=== PATIENT | male | born 1950 | race Caucasian/White ===

== ENCOUNTER 2017-09-13 14:55 | Inpatient (IN) | payer MEDICARE, OTHER ==
[2017-09-13] MEDS ORDERED: POLYMYXIN B 500000 UNIT INJ (18:35)
[2017-09-13] MEDS ORDERED: VANCOMYCIN 1 GM INJ (18:36)
[2017-09-13] MEDS ORDERED: TOBRAMYCIN 1.2 GM POWDER (18:36)
[2017-09-13 18:44] LABS: ADD MAN DIFF? NO
[2017-09-13 18:48] LABS: WHITE BLOOD COUNT 8.6 10^3/ul (4.8-10.8)
[2017-09-13 18:48] LABS: BASOPHIL # 0.1 10^3/ul (0.0-0.1); BASOPHILS % 1.2 % (0.0-2.0); EOSINOPHILS # 0.5 10^3/ul (0.0-0.5); EOSINOPHILS % 5.8 % (0.0-7.0); HEMATOCRIT 47.4 % (42.0-52.0); HEMOGLOBIN 15.2 g/dl (14.0-18.0); LYMPHOCYTES # 1.3 10^3/ul (0.8-2.9); MEAN CORPUSCULAR HEMOGLOBIN 31.6 pg (29.0-33.0); MEAN CORPUSCULAR HGB CONC 32.1 g/dl (32.0-37.0); MEAN CORPUSCULAR VOLUME 98.5 fl (82.0-101.0); MEAN PLATELET VOLUME 9.6 fl (7.4-10.4); MONOCYTE # 0.8 10^3/ul (0.3-0.9); NEUTROPHIL # 5.8 10^3/ul (1.6-7.5); NEUTROPHILS % 68.2 % (39.0-77.0); PLATELET COUNT 224 10^3/UL (140-415); RED BLOOD COUNT 4.81 10^6/ul (4.70-6.10); RED CELL DISTRIBUTION WIDTH 16.8 % (11.5-14.5)
[2017-09-13] MEDS ORDERED: FENTAnyl 50 MCG/ML VIAL (18:48)
[2017-09-13] MEDS ORDERED: PROPOFOL 20 ML (18:49)
[2017-09-13] MEDS ORDERED: MIDAZOLAM 1 MG/ML 2 ML INJ (18:49)
[2017-09-13] MEDS ORDERED: LIDOCAINE 2% (SDV) 5 ML INJ (18:49)
[2017-09-13] MEDS ORDERED: ONDANSETRON 4 MG INJ (18:49)
[2017-09-13] MEDS ORDERED: MEPERIDINE 25 MG INJ IV ×2 (19:00→21:00)
[2017-09-13] MEDS ORDERED: DIPHENHYDRAMINE 25 MG CAP PO (19:00)
[2017-09-13] MEDS ORDERED: DIPHENHYDRAMINE 50 MG INJ IV ×2 (19:00→21:00)
[2017-09-13] MEDS ORDERED: morphine 10 MG INJ IV (19:00)
[2017-09-13] MEDS ORDERED: hydrALAzine 20 MG INJ IV ×2 (19:00→21:00)
[2017-09-13] MEDS ORDERED: LEVALBUTEROL (NEB) 0.63 MG/3 ML AMP HHN (19:00)
[2017-09-13] MEDS ORDERED: FENTAnyl 50 MCG/ML VIAL IV ×2 (19:00→21:00)
[2017-09-13] MEDS ORDERED: IPRATROPIUM (NEB) 0.5 MG/2.5 ML AMP HHN ×2 (19:00→21:00)
[2017-09-13] MEDS ORDERED: OXYCODONE/ACETAMINOPHEN (5/325) TAB PO (19:00)
[2017-09-13] MEDS ORDERED: ONDANSETRON 4 MG INJ IV ×3 (19:00→21:00)
[2017-09-13] MEDS ORDERED: HYDROmorphONE (0.2 MG/ML) 10ML SYG IV ×4 (19:00→21:00)
[2017-09-13 19:17] LABS: ALANINE AMINOTRANSFERASE 24 IU/L (13-69); ALBUMIN 4.8 g/dl (3.3-4.9); ALKALINE PHOSPHATASE 159 IU/L (42-121); ANION GAP 19 (8-16); ASPARTATE AMINO TRANSFERASE 30 IU/L (15-46); BILIRUBIN,INDIRECT 0.9 mg/dl (0-1.1); BILIRUBIN,TOTAL 0.9 mg/dl (0.2-1.3); BLOOD UREA NITROGEN 35 mg/dl (7-20); CALCIUM 10.5 mg/dl (8.4-10.2); CARBON DIOXIDE 31 mmol/L (21-31); CHLORIDE 99 mmol/L (97-110); CREATININE 1.57 mg/dl (0.61-1.24); GLUCOSE 100 mg/dl (70-220); POTASSIUM 4.5 mmol/L (3.5-5.1); SODIUM 144 mmol/L (135-144); TOTAL PROTEIN 8.8 g/dl (6.1-8.1)
[2017-09-13 19:32] LABS: URIC ACID 5.4 mg/dl (3.1-7.9)
[2017-09-13] MEDS: ALBUTEROL/IPRATROPIUM (NEB) 3 ML AMP HHN (19:32)
[2017-09-13] MEDS ORDERED: ROPIVACAINE 0.5 % 30 ML VIAL ×2 (19:55→19:57)
[2017-09-13] MEDS ORDERED: VANCOMYCIN 1 GM (PMX) 250 ML (19:58)
[2017-09-13 20:01] LABS: C-REACTIVE PROTEIN 3.2 mg/dl (0.0-0.9)
[2017-09-13 20:01] LABS: ERYTHROCYTE SEDIMENTATION RATE 20 mm/Hr (0-20)
[2017-09-13] MEDS ORDERED: PHENYLephrine (100 MCG/ML) 5ML SYG (20:06)
[2017-09-13] MEDS ORDERED: KETOROLAC 30 MG INJ (20:12)
[2017-09-13] MEDS ORDERED: BACITRACIN/POLYMYXIN 28.35 GM OINT TOP (20:15)
[2017-09-13] MEDS: POLYMYXIN B 500000 UNIT INJ IRR (20:27)
[2017-09-13] MEDS: BACITRACIN 50000 UNITS INJ IRR (20:27)
[2017-09-13] MEDS: VANCOMYCIN 1 GM INJ IRR (20:28)
[2017-09-13] MEDS: TOBRAMYCIN 1.2 GM POWDER ZFS (20:29)
[2017-09-13 20:30] LABS: INR 0.89; PROTIME 12.1 Sec (11.9-14.9); PT RATIO 0.9
[2017-09-13] MEDS: ROPIVACAINE 0.5 % 30 ML VIAL INJ (20:30)
[2017-09-13] MEDS: BACITRACIN/POLYMYXIN 0.9 GM OINT TOP (20:30)
[2017-09-13 20:31] LABS: PARTIAL THROMBOPLASTIN TIME 31.3 Sec (25.0-35.0)
[2017-09-13] MEDS ORDERED: LEVALBUTEROL (NEB) 1.25 MG/0.5 ML AMP HHN (21:00)
[2017-09-13] MEDS ORDERED: KETOROLAC 30 MG INJ IV (21:00)
[2017-09-14 05:17] LABS: ADD MAN DIFF? NO
[2017-09-14 05:28] LABS: WHITE BLOOD COUNT 6.5 10^3/ul (4.8-10.8)
[2017-09-14 05:28] LABS: BASOPHIL # 0.1 10^3/ul (0.0-0.1); BASOPHILS % 0.9 % (0.0-2.0); EOSINOPHILS # 0.5 10^3/ul (0.0-0.5); EOSINOPHILS % 7.9 % (0.0-7.0); HEMATOCRIT 36.2 % (42.0-52.0); HEMOGLOBIN 11.9 g/dl (14.0-18.0); LYMPHOCYTES % 15.9 % (15.0-51.0); MEAN CORPUSCULAR HEMOGLOBIN 32.7 pg (29.0-33.0); MEAN CORPUSCULAR HGB CONC 32.9 g/dl (32.0-37.0); MEAN CORPUSCULAR VOLUME 99.5 fl (82.0-101.0); MEAN PLATELET VOLUME 9.6 fl (7.4-10.4); MONOCYTE # 0.7 10^3/ul (0.3-0.9); MONOCYTES % 11.1 % (0.0-11.0); NEUTROPHIL # 4.1 10^3/ul (1.6-7.5); NEUTROPHILS % 63.7 % (39.0-77.0); PLATELET COUNT 182 10^3/UL (140-415); RED BLOOD COUNT 3.64 10^6/ul (4.70-6.10); RED CELL DISTRIBUTION WIDTH 16.6 % (11.5-14.5)
[2017-09-14 05:49] LABS: ALBUMIN 3.7 g/dl (3.3-4.9); ANION GAP 15 (8-16); BLOOD UREA NITROGEN 37 mg/dl (7-20); CALCIUM 8.6 mg/dl (8.4-10.2); CARBON DIOXIDE 30 mmol/L (21-31); CHLORIDE 101 mmol/L (97-110); CREATININE 1.54 mg/dl (0.61-1.24); GLUCOSE 89 mg/dl (70-220); PHOSPHORUS 5.3 mg/dl (2.5-4.9); POTASSIUM 4.5 mmol/L (3.5-5.1); SODIUM 141 mmol/L (135-144)
[2017-09-14] MEDS: FUROSEMIDE 20 MG TAB PO (08:25)
[2017-09-14] MEDS: CHOLECALCIFEROL 1,000 UNIT TAB PO (08:25)
[2017-09-14] MEDS: ALLOPURINOL 300 MG TAB PO (08:25)
[2017-09-14] MEDS: SPIRONOLACTONE 50 MG TAB PO (08:26)
[2017-09-14] MEDS ORDERED: VANCOMYCIN IV PER PHARMACY XX (14:30)
[2017-09-14] MEDS: VANCOMYCIN 1 GM 250 ML IVPB ×2 (15:48→18:32)
[2017-09-15 06:13] LABS: C-REACTIVE PROTEIN 3.1 mg/dl (0.0-0.9)
[2017-09-15] MEDS: ALLOPURINOL 300 MG TAB PO (09:09)
[2017-09-15] MEDS: CHOLECALCIFEROL 1,000 UNIT TAB PO (09:09)
[2017-09-15] MEDS: FUROSEMIDE 20 MG TAB PO (09:10)
[2017-09-15] MEDS: SPIRONOLACTONE 50 MG TAB PO (09:10)
[2017-09-15] MEDS ORDERED: VANCOMYCIN 1.5 GM in SOD CHLORIDE 0.9% 250 ML IVPB (15:00)
[2017-09-15] MEDS: TRIMETHOPRIM/SULFAMETHOX (DS) TAB PO (20:32)
== END 2017-09-15 22:00 | disposition home or self-care (01) | DRG 501 ==
LOC: MS1 09-15 12:13 → E/R 14:55 → REC 21:12 → MS1 23:47
PROC: 0JDQ0ZZ Extraction of Right Foot Subcutaneous Tissue and Fascia, Open Approach (ICD-10-PCS; principal; 2017-09-13 18:30)
PROC: 3E1U38X Irrigation of Joints using Irrigating Substance, Percutaneous Approach, Diagnostic (ICD-10-PCS; 2017-09-13 18:30)
DX: M10.9 Gout, unspecified (principal); L02.611 Cutaneous abscess of right foot; I12.9 Hypertensive chronic kidney disease with stage 1 through stage 4 chronic kidney disease, or unspecified chronic kidney disease; N18.2 Chronic kidney disease, stage 2 (mild); E78.5 Hyperlipidemia, unspecified; M1A.9XX1 Chronic gout, unspecified, with tophus (tophi); E03.9 Hypothyroidism, unspecified; I48.2 Chronic atrial fibrillation; K21.9 Gastro-esophageal reflux disease without esophagitis; J44.9 Chronic obstructive pulmonary disease, unspecified; Z87.19 Personal history of other diseases of the digestive system
CPT/HCPCS: 36415; 73700; 80053; 80069; 82306; 84560; 85025; 85610; 85651; 85730; 86140; 87070; 87102; 88304; 93005; 94640; 94664; 97162; 99285-25